=== PATIENT | female | born 1970 | race Caucasian/White ===

== ENCOUNTER → 2024-03-25 | Day surgery (SDC) | payer MEDICAID ==
[~2024-03-25] MED LIST: LIDOCAINE HCL 1% 10 MG/ML 10ML VIAL ONE; SODIUM BICARBONATE 4% 2.4MEQ/5ML VIAL IV ONE; VITA400T9 PO
== END | disposition home or self-care (01) ==
LOC: RAD 10:48
PROVIDERS: ATTEND Surgery Surgical Oncology
DX: D24.2 Benign neoplasm of left breast (principal); N64.52 Nipple discharge; Z79.899 Other long term (current) drug therapy; Z98.890 Other specified postprocedural states
CPT/HCPCS: 19281; 76641; J3490 ×2; J2003; A4648

== ENCOUNTER → 2024-03-31 | Day surgery (SDC) | payer MEDICAID ==
[~2024-03-31] VITALS: Ht 157.5 cm; Wt 83.9 kg
[~2024-03-31] MED LIST changes: +BUPIVACAINE HCL/PF 0.5% (5MG/ML) 10ML ONE; +CEFAZOLIN SODIUM 1000MG/VIAL ONE; +FENTANYL CITRATE/PF 50MCG/ML 2ML VIAL ONE; -LIDOCAINE HCL 1% 10 MG/ML 10ML VIAL ONE; +LIDOCAINE HCL/EPINEPHRINE 1%-EPI 1:100,000 20ML VIAL ONE; +MIDAZOLAM HCL 2 MG/2 ML VIAL ONE; +ONDANSETRON HCL 4MG/2ML INJ IV PRN; +ONDANSETRON HCL 4MG/2ML INJ ONE; +PROPOFOL 200MG/20ML VIAL IV ONE; -SODIUM BICARBONATE 4% 2.4MEQ/5ML VIAL IV ONE; +SODIUM CHLORIDE 0.9% 1,000 ML IV SCH
[2024-03-31] MEDS: HYDROMORPHONE HCL/PF 1MG/ML INJ IV PRN (13:40)
[2024-03-31 15:30] VITALS: BP 124/79; PULSE 84; RESP 15
[2024-03-31] MEDS: HYDROCODONE/ACETAMINOPHEN 5/325MG TABLET PO NR (15:30)
== END | disposition home or self-care (01) ==
LOC: OR 08:16
PROVIDERS: ATTEND Surgery Surgical Oncology
DX: D24.2 Benign neoplasm of left breast (principal); N63.42 Unspecified lump in left breast, subareolar; N64.52 Nipple discharge; M19.90 Unspecified osteoarthritis, unspecified site; Z79.899 Other long term (current) drug therapy; Z98.890 Other specified postprocedural states
CPT/HCPCS: 82962; 76098; 19120; J3010; J3490; J0690; J2004; J2250; J2405; J2704; J1171; A4663; 88305; A4606